=== PATIENT | male | born 1970 | race Caucasian/White ===

== ENCOUNTER 2018-07-01 10:41 | Emergency (ER) | payer BC ==
[~2018-07-01] VITALS: Wt 86.5 kg
[2018-07-01 10:44] VITALS: BP 121/76; PULSE 76; RESP 18
--- NOTE | 2018-07-01 11:42 | ERD ---
ER Documentation Chief Complaint Chief Complaint FLU LIKE SYMPTOMS X 2 DAYS,COUGH,CHEST CONGESTION HPI 47-year-old male presents with productive cough for the last 3-4 days. Denies chest pain, measured fevers, vomiting, abdominal pain. ROS All systems reviewed and are negative except as per history of present illness. Allergies Allergies: Coded Allergies: No Known Allergy (Unverified , 12/28/13) PMhx/Soc Medical and Surgical Hx: pt denies Medical Hx, pt denies Surgical Hx History of Surgery: No Anesthesia Reaction: No Hx Neurological Disorder: No Hx Respiratory Disorders: No Hx Cardiac Disorders: No Hx Psychiatric Problems: No Hx Miscellaneous Medical Probl: No Hx Alcohol Use: No Hx Substance Use: Yes (recreational marijuana) Hx Tobacco Use: Yes (pack a day) Smoking Status: Current every day smoker FmHx Family History: No diabetes, No coronary disease, No other Physical Exam Vitals Vital Signs Date Temp Pulse Resp B/P (MAP) Pulse Ox O2 O2 Flow FiO2 Time Delivery Rate 07/01/18 97.2 76 18 121/76 99 10:44 (91) Physical Exam Const: No acute distress Head: Atraumatic Eyes: Normal Conjunctiva ENT: Normal External Ears, Nose and Mouth. TMs and oropharynx normal. Neck: Full range of motion. No meningismus. Resp: Clear to auscultation bilaterally. Rhonchi and coarse cough without rales or retractions. Cardio: Regular rate and rhythm, no murmurs Abd: Soft, non tender, non distended. Normal bowel sounds Skin: No petechiae or rashes Back: No midline or flank tenderness Ext: No cyanosis, or edema Neur: Awake and alert Psych: Normal Mood and Affect Procedures/MDM Presents with productive cough for the last 3 or 4 days. Is a smoker. He denies hemoptysis and there is no signs or symptoms of respiratory distress, hypoxemia. He will be treated with cough syrup, fever control, further observation and return precautions. We will dispense a prescription for Zithromax to hold for 3-4 days and take for worsening productive cough. He should otherwise return sooner for new or worsening symptoms with primary care doctor. The patient was stable with no new complaints during the ER course. Clinically, there is no current evidence to suggest meningitis, sepsis, acute abdomen, pneumonia, stroke, acute coronary syndrome, pulmonary embolism, aortic dissection or any other emergent condition appearing to require further evaluation or hospitalization. Patient counseled regarding my diagnostic impression and care plan. Prior to discharge all questions answered. Pt agrees with treatment plan and understands strict return precautions. Pt is instructed to follow up with primary care provider within 24-48 hours. Precautionary instru ctions provided including instructions to return to the ER if not improving or for any worsening or changing symptoms or concerns. Disclaimer: Inadvertent spelling and grammatical errors are likely due to EHR/dictation software use and do not reflect on the overall quality of patient care. Also, please note that the electronic time recorded on this note does not necessarily reflect the actual time of the patient encounter. Departure Diagnosis: Primary Impression: Upper respiratory infection URI type: unspecified URI Qualified Codes: J06.9 - Acute upper respiratory infection, unspecified Condition: Stable JIM TAYLOR MD Jul 01, 2018 11:42
[2018-07-01] MEDS ORDERED: IBUP-1542 PO (11:43)
[2018-07-01] MEDS ORDERED: AZIT250T PO (11:43)
[2018-07-01] MEDS ORDERED: PROM5SYR2 PO (11:43)
== END 2018-07-01 12:16 | disposition home or self-care (01) ==
LOC: FTE 10:41
DX: J06.9 Acute upper respiratory infection, unspecified (principal); F17.210 Nicotine dependence, cigarettes, uncomplicated
CPT/HCPCS: 99283